=== PATIENT | male | born 1995 | race Hispanic/Latino ===

== ENCOUNTER 2024-09-21 06:51 | Day surgery (SDC) | payer SELFPAY ==
[2024-09-18 15:11] VITALS: BMI 27.5
[2024-09-21] MEDS ORDERED: fentaNYL PF 100 MCG/2 ML SYRINGE ONE (10:58)
[2024-09-21] MEDS ORDERED: PROPOFOL 20 ML ONE (10:59)
[2024-09-21] MEDS ORDERED: Lidocaine 1% PF 5 ML VIAL ONE (10:59)
[2024-09-21] MEDS ORDERED: Ondansetron PF 4 MG/2 ML Vial ONE (10:59)
[2024-09-21] MEDS ORDERED: Ketorolac Tromethamine 30 MG (1 mL) VIAL ONE (10:59)
[2024-09-21] MEDS ORDERED: CEFAZOLIN 2 GM VIAL ONE (11:05)
[2024-09-21] MEDS ORDERED: Lidocaine 1% (PF) 30 ML VIAL ONE ×2 (13:33→13:36)
[2024-09-21] MEDS ORDERED: HYDROcodone/Acetaminophen 5/325 mg Tablet ONE (14:17)
== END 2024-09-21 15:15 | disposition home or self-care (01) ==
LOC: SDC 06:51
PROVIDERS: ATTEND Orthopaedic Surgery
PROC: 0X6N0Z0 Detachment at Right Index Finger, Complete, Open Approach (ICD-10-PCS; principal; 2024-09-21)
PROC: 0X6P0Z0 Detachment at Left Index Finger, Complete, Open Approach (ICD-10-PCS; principal; 2024-09-21)
DX: S68.611A Complete traumatic transphalangeal amputation of left index finger, initial encounter (principal); S68.610A Complete traumatic transphalangeal amputation of right index finger, initial encounter; Z90.49 Acquired absence of other specified parts of digestive tract; Z79.2 Long term (current) use of antibiotics; W28.XXXA Contact with powered lawn mower, initial encounter
CPT/HCPCS: A6223; J1885; J2405; J2704